=== PATIENT | male | born 1990 | race American Indian/Alaskan Native ===

== ENCOUNTER 2021-10-17 14:46 | Emergency (ER) | payer SELFPAY ==
[2021-10-17 14:55] VITALS: BP 121/79
--- NOTE | 2021-10-17 15:56 | Emergency Department Report ---
ED N/V/D HPI - General Chief complaint: Nausea/Vomiting/Diarrhea Stated complaint: NAUSEA/VOMITING PUI?: No Time Seen by Provider: 10/17/21 15:44 Source: patient Mode of arrival: Ambulatory Limitations: No Limitations - History of Present Illness Initial comments: Patient is a 31-year-old male that comes to the emergency room with nausea and vomiting. This required him to miss work the last 3 days he is requesting a work note but he also wants to know what is wrong. Patient denies fever or chills. He denies any diarrhea. He denies any constipation. He denies any trauma. He denies back pain. He denies any dysuria. Patient denies any associated abdominal pain. Patient states he never has had anything like this before. Patient is in no acute distress on arrival to ER. MD complaint: nausea, vomiting -: Gradual, days(s) Associated Abdominal Pain: No Severity: mild Quality: cramping Consistency: intermittent Worsens with: none Associated Symptoms: nausea/vomiting. denies: myalgias, chest pain, cough, diaphoresis, fever/chills, headaches, loss of appetite, malaise, rash, dysuria, shortness of breath, syncope, weakness - Related Data Previous Rx's Medication Instructions Recorded Last Taken Type Ondansetron [Zofran Odt] 4 mg PO Q8HR PRN #10 tab.rapdis 10/17/21 Unknown Rx Allergies Allergy/AdvReac Type Severity Reaction Status Date / Time No Known Allergies Allergy Verified 10/17/21 14:50 ED Review of Systems ROS: Stated complaint: NAUSEA/VOMITING Other details as noted in HPI ED Past Medical Hx - Past Medical History Previous Medical History?: No - Surgical History Past Surgical History?: No - Family History Family history: no significant - Social History Smoking Status: Never Smoker Substance Use Type: Alcohol - Medications Home Medications: Home Medications Medication Instructions Recorded Confirmed Last Taken Type Ondansetron [Zofran Odt] 4 mg PO Q8HR PRN #10 tab.rapdis 10/17/21 Unknown Rx ED Physical Exam - General Limitations: No Limitations General appearance: alert, in no apparent distress - Head Head exam: Present: atraumatic, normocephalic - Eye Eye exam: Present: normal appearance - ENT ENT exam: Present: mucous membranes moist - Neck Neck exam: Present: normal inspection - Respiratory Respiratory exam: Present: normal lung sounds bilaterally. Absent: respiratory distress - Cardiovascular Cardiovascular Exam: Present: regular rate, normal rhythm. Absent: systolic murmur, diastolic murmur, rubs, gallop - GI/Abdominal GI/Abdominal exam: Present: soft, normal bowel sounds - Rectal Rectal exam: Present: deferred - Extremities Exam Extremities exam: Present: normal inspection - Back Exam Back exam: Present: normal inspection - Neurological Exam Neurological exam: Present: alert, oriented X3 - Psychiatric Psychiatric exam: Present: normal affect, normal mood - Skin Skin exam: Present: warm, dry, intact, normal color. Absent: rash ED Course Vital Signs 10/17/21 14:51 Temperature 98.6 F Pulse Rate 70 Respiratory 16 Rate Blood Pressure 121/79 [Left] O2 Sat by Pulse 97 Oximetry ED Medical Decision Making - Lab Data Result diagrams: 10/17/21 15:51 10/17/21 15:51 - Medical Decision Making Labs 10/17/21 10/17/21 10/17/21 15:51 15:51 Unknown WBC 5.8 RBC 5.59 H Hgb 16.5 H Hct 49.0 H MCV 88 MCH 30 MCHC 34 RDW 12.6 L Plt Count 191 Lymph % (Auto) 33.6 Isabella % (Auto) 12.8 H Eos % (Auto) 0.5 Baso % (Auto) 0.7 Lymph # (Auto) 1.9 Isabella # (Auto) 0.7 Eos # (Auto) 0.0 Baso # (Auto) 0.0 Seg Neutrophils % 52.4 Seg Neutrophils # 3.0 Sodium 141 Potassium 4.4 Chloride 101.4 Carbon Dioxide 30 Anion Gap 14 BUN 21 H Creatinine 1.2 Estimated GFR > 60 BUN/Creatinine Ratio 18 Glucose 85 Calcium 9.5 Total Bilirubin 0.40 AST 29 ALT 14 Alkaline Phosphatase 64 Total Protein 6.7 Albumin 4.4 Albumin/Globulin Ratio 1.9 Lipase 20 Urine Color Yellow Urine Turbidity Clear Urine pH 7.0 Ur Specific [place] 1.029 Urine Protein 100 mg/dl Urine Glucose (UA) Neg Urine Ketones Neg Urine Blood Neg Urine Nitrite Neg Urine Bilirubin Neg Urine Urobilinogen 4.0 Ur Leukocyte Esterase Tr Urine WBC (Auto) 5.0 Urine RBC (Auto) < 1.0 U Epithel Cells (Auto) < 1.0 Urine Mucus 3+ Vital Signs 10/17/21 14:51 Temperature 98.6 F Pulse Rate 70 Respiratory 16 Rate Blood Pressure 121/79 [Left] O2 Sat by Pulse 97 Oximetry Labs noted. UA normal. Exam is unremarkable. Patient has had no nausea vomiting or diarrhea while in the ER. He has been given his requested work note Patient reassured. Patient discharged home with discharge plan of care including diet, activity, medications and follow-up. - Differential Diagnosis Gastroenteritis, gastritis, pancreatitis, cholecystitis Critical care attestation.: If time is entered above; I have spent that time in minutes in the direct care of this critically ill patient, excluding procedure time. ED Disposition Clinical Impression: Nausea & vomiting Qualifiers: Vomiting type: unspecified Qualified Code(s): R11.2 - Nausea with vomiting, unspecified Disposition: 01 HOME / SELF CARE / HOMELESS Is pt being admited?: No Does the pt Need Aspirin: No Condition: Stable Instructions: Nausea and Vomiting, Adult Additional Instructions: All of your labs were normal today. Use the Zofran if you have any additional nausea or vomiting Follow-up with PCP if symptoms persist. Have given you referral below Diet as tolerated. Referrals: CRISTOFER ARRIAGA MD [Staff Physician] - 3-5 Days Forms: Work/School Release Form(ED) Time of Disposition: 17:01
[2021-10-17 16:26] LABS: Bilirubin,Urine NEG (Negative); Blood,Urine NEG (Negative); Color,Urine Yellow (Yellow); Mucus,Urine 3+ /HPF; RBC,Urine < 1.0 /HPF (0.0-6.0)
[2021-10-17 16:47] LABS: Alanine Aminotransferase 14 units/L (7-56); Albumin 4.4 g/dL (3.9-5); BUN/Creatinine Ratio 18; Basophils % (Auto) 0.7 % (0.0-1.8); Blood Urea Nitrogen 21 mg/dL (9-20); Calcium 9.5 mg/dL (8.4-10.2); Eosinophils % (Auto) 0.5 % (0.0-4.3); Hemoglobin 16.5 gm/dl (11.8-15.2); Hemolysis Index 6; Lymphocytes # (Auto) 1.9 K/mm3 (1.2-5.4); Lymphocytes % (Auto) 33.6 % (13.4-35.0); Mean Corpuscular HGB Conc 34 % (32-34); Mean Corpuscular Volume 88 fl (84-94); Monocytes # (Auto) 0.7 K/mm3 (0.0-0.8); Monocytes % (Auto) 12.8 % (0.0-7.3); Platelet Count 191 K/mm3 (140-440); Red Blood Count 5.59 M/mm3 (3.65-5.03); Red Cell Distribution Width 12.6 % (13.2-15.2)
== END 2021-10-17 17:47 | disposition home or self-care (01) ==
LOC: ED 14:46
DX: R11.2 Nausea with vomiting, unspecified (principal); Z72.89 Other problems related to lifestyle; Z79.899 Other long term (current) drug therapy
CPT/HCPCS: 36415; 80053; 81001; 83690; 85025; 99283